=== PATIENT | female | born 1995 | race Caucasian/White ===

== ENCOUNTER 2017-06-08 22:02 | Emergency (ER) | payer OTHER ==
--- NOTE | 2017-06-08 23:48 | ED ORDER SUMMARY ---
..... Patient: INDIO MENJIVAR OrderSheet [facility] VisitID: [id number] [place] [address] 21y, F Registration Date/Time: 06/08/2017 ORDER SHEET Weight: 137.4 kg (measured) Allergies: No Known Drug Allergy GENERAL ORDERS: CBC w Diff Urgent (22:06/08/2017 Missy MURRELL) (Ack 22:12 Holly) (22:15 JSanders R.N.) CMP Urgent (22:06/08/2017 Missy MURRELL) (Ack 22:12 Holly) (22:15 GRACIELAanders R.N.) UA-Culture if indicated Urgent (22:06/08/2017 Missy MURRELL) (Ack 22:12 Holly) (22:29 JSanders R.N.) Amylase Urgent (22:06/08/2017 Missy MURRELL) (Ack 22:12 Holly) (22:15 JSanders R.N.) Lipase Urgent (22:06/08/2017 Missy MURRELL) (Ack 22:12 Holly) (22:15 GRACIELAanders R.N.) Urine Urgent (22:06/08/2017 Missy MURRELL) (Ack 22:12 Holly) (22:29 JSanders R.N.) MEDICATION ORDERS: Tylenol PO 1,000 mg (NOW) (00:18 06/09/2017 Missy MURRELL) (Ack 0:20 JSanders R.N.) (0:21 SHAHABollier R.N.) IV FLUIDS: IV NS : initial bolus 1000 mL (1000 mL/hr), then 150 mL/hr for 4h (NOW); Urgent (22:10 06/08/2017 Missy MURRELL) (Ack 22:15 JSanders R.N.) (22:29 JSanders R.N.) Zofran IV 4 mg (NOW) (22:11 06/08/2017 Missy MURRELL) (Ack 22:15 JSanders R.N.) (22:29 GRACIELAanders R.N.) ORDER SHEET NOTES: [Electronically signed by Irish Donahue R.N. (00:06/09/2017)] [Electronically signed by Sha Ceballos MD (02:06/09/2017)] [Electronically locked/signed by Irish Donahue R.N. (00:06/09/2017)]
--- NOTE | 2017-06-08 23:48 | ED ORDER SUMMARY ---
..... Patient: INDIO MENJIVAR OrderSheet [facility] VisitID: [id number] [place] [address] 21y, F Registration Date/Time: 06/08/2017 ORDER SHEET Weight: 137.4 kg (measured) Allergies: No Known Drug Allergy GENERAL ORDERS: CBC w Diff Urgent (22:06/08/2017 Missy MURRELL) (Ack 22:12 Holly) (22:15 JSanders R.N.) CMP Urgent (22:06/08/2017 Missy MURRELL) (Ack 22:12 Holly) (22:15 GRACIELAanders R.N.) UA-Culture if indicated Urgent (22:06/08/2017 Missy MURRELL) (Ack 22:12 Holly) (22:29 JSanders R.N.) Amylase Urgent (22:06/08/2017 Missy MURRELL) (Ack 22:12 Holly) (22:15 JSanders R.N.) Lipase Urgent (22:06/08/2017 Missy MURRELL) (Ack 22:12 Holly) (22:15 GRACIELAanders R.N.) Urine Urgent (22:06/08/2017 Missy MURRELL) (Ack 22:12 Holly) (22:29 JSanders R.N.) MEDICATION ORDERS: Tylenol PO 1,000 mg (NOW) (00:18 06/09/2017 Missy MURRELL) (Ack 0:20 JSanders R.N.) (0:21 SHAHABollier R.N.) IV FLUIDS: IV NS : initial bolus 1000 mL (1000 mL/hr), then 150 mL/hr for 4h (NOW); Urgent (22:10 06/08/2017 Missy MURRELL) (Ack 22:15 JSanders R.N.) (22:29 JSanders R.N.) Zofran IV 4 mg (NOW) (22:11 06/08/2017 Missy MURRELL) (Ack 22:15 JSanders R.N.) (22:29 GRACIELAanders R.N.) ORDER SHEET NOTES: [Electronically signed by Irish Donahue R.N. (00:06/09/2017)] [Electronically signed by Sha Ceballos MD (02:06/09/2017)] [Electronically locked/signed by Irish Donahue R.N. (00:06/09/2017)]
--- NOTE | 2017-06-08 23:48 | ED CLINICAL REPORT ---
Clinical Report - Physicians/Mid Levels [facility] [address] [place] [address] 06/08/2017 22:03 Patient: INDIO MENJIVAR Time Seen: 22:10. Arrived- By private vehicle. Historian- patient. HISTORY OF PRESENT ILLNESS Chief Complaint: VOMITING. This started several days ago and is still present. It was gradual in onset and has been waxing/waning. Recent travel- [place] ([place] May 10, 2017). She has had moderate nausea. She has had vomiting. The vomiting has occurred several times. No blood-tinged emesis or frankly bloody emesis. She has had loose stools. This has occurred several times. No bloody diarrhea. No black stools, bloody stools, abdominal pain or known contact with a sick individual. Has not recently been camping or on antibiotics. Possible bad food exposure at restaurant (she was visiting with her uncle and ate "junk food."). The illness is described as moderate. REVIEW OF SYSTEMS The patient has had moderate urinary frequency (several days ago - gone now). She has had back pain (yesterday - gone now). All systems otherwise negative, except as recorded above. SOCIAL HISTORY Never smoker. No alcohol use or drug use. She lives with parent(s). Has good social support. ADDITIONAL NOTES The nursing notes have been reviewed. PHYSICAL EXAM Vital Signs: 06/08/2017 22:07 BP: 139/75. HR: 115. RR: 18. O2 saturation: 99%. Temp: 99 F. Pain level now: 10/10. Have been reviewed. Appearance: Alert. Eyes: Pupils equal, round and reactive to light. ENT: Pharynx normal. Neck: Normal inspection. Neck supple. CVS: Normal heart rate and rhythm. Heart sounds normal. Abdomen: Soft and nontender. Bowel sounds normal. No organomegaly. No mass. Obese. Back: Normal inspection. Skin: Skin warm and dry. Normal skin color. Normal skin turgor. Extremities: Extremities exhibit normal ROM. No calf tenderness. No lower extremity edema. LABS, X-RAYS, AND EKG Laboratory Tests: UA-Culture if indicated: (RITO: 06/08/2017 22:30) ( [facility] 06/08/2017 22:53) Final results Test Result Flag Units (Reference) URINE COLOR YELLOW URINE APPEARANCE CLEAR URINE GLUCOSE NEGATIVE (NEGATIVE) URINE BILIRUBIN NEGATIVE (NEGATIVE) URINE KETONE NEGATIVE (NEGATIVE) URINE SPECIFIC GRAVITY 1.010 (1.010-1.030) URINE PH 6.5 (5.0-8.0) URINE PROTEIN NEGATIVE (NEGATIVE) URINE UROBILINOGEN 0.2 EU/dL (0.2-1.0) URINE NITRITE NEGATIVE (NEGATIVE) URINE BLOOD NEGATIVE (NEGATIVE) URINE LEUK ESTERASE NEGATIVE (NEGATIVE) URINE RBC 0-1 rbc/hpf (0-1) URINE WBC 0-1 wbc/hpf (0-1) URINE EPITHELIAL CELLS 1-3 EPI/hpf (0-5) URINE BACTERIA TRACE (<1+) (NONE SEEN) URINE COMMENT CULT NOT INDICATED URINE CULTURES ARE SET-UP BASED ON THE FOLLOWING CRITERIA:POSITIVE NITRITEPOSITIVE LEUKOCYTE ESTERASEGREATER THAN 10 WHITE BLOOD CELLSMODERATE (2+) OR GREATER BACTERIA Urine: (RITO: 06/08/2017 22:30) ( [facility] 06/08/2017 22:39) Final results Test Result Flag Units (Reference) URINE NEGATIVE CBC w Diff: (RITO: 06/08/2017 22:15) ( [facility] 06/08/2017 22:38) Final results Test Result Flag Units (Reference) WHITE BLOOD COUNT 8.5 K/uL (4.5-11.5) RED BLOOD COUNT 4.54 M/uL (4.00-5.20) HEMOGLOBIN 12.5 gm/dL (12.0-16.0) HEMATOCRIT 37.5 % (36.0-46.0) MEAN CELL VOLUME 83 fL (80-100) MEAN CORPUSCULAR HGB 28 pg (26-34) MEAN CORPUSCULAR HGB CONC 33 g/dL (31-37) RED CELL DISTRIBUTION WIDTH 14.1 % (11.6-14.8) PLATELET COUNT 303 K/uL (150-400) NEUTROPHIL % 65.3 % (50-75) LYMPH % 24.3 L % (25-40) MONO % 9.5 % (3-14) EOSINOPHIL % 0.5 % (0-4) BASOPHIL % 0.4 % (0-2) CMP: (RITO: 06/08/2017 22:15) ( MsgRcvd 06/08/2017 22:53) Final results Test Result Flag Units (Reference) GLUCOSE 99 mg/dL (70-110) BUN 11 mg/dL (7-18) CREATININE 1.1 mg/dL (0.6-1.3) Estimated GFR >60 mL/min Estimated GFR- >60 mL/min Note: Persistent reduction over 3 months in eGFR<60 mL/min/1.73 m2 defines CKD. Patients with eGFR values>=60 mL/min/1.73 m2 may also have CKD if evidence ofpersistent proteinuria. Additional information may be foundat www.kidney.org. SODIUM 132 L mmol/L (136-145) POTASSIUM 4.0 mmol/L (3.5-5.1) CHLORIDE 98 mmol/L (98-107) CARBON DIOXIDE 29 mmol/L (21-32) CALCIUM 8.4 L mg/dL (8.5-10.1) TOTAL PROTEIN 8.3 H g/dL (6.4-8.2) ALBUMIN 3.3 g/dL (3.3-5.0) BILIRUBIN, TOTAL 0.5 mg/dL (0.0-1.0) ALKALINE PHOSPHATASE 112 U/L (46-116) AST (SGOT) 31 U/L (15-37) ALT (SGPT) 56 U/L (12-78) LIPASE 153 U/L (73-393) AMYLASE 52 U/L (25-115) . CLINICAL IMPRESSION Vomiting. Diarrhea INSTRUCTIONS Rest. Drink plenty of fluids. Warnings: Further evaluation is necessary. GENERAL WARNINGS: Return or contact your physician immediately if your condition worsens or changes unexpectedly, if not improving as expected, or if other problems arise. Prescription Medications: Zofran 4 mg: Take 1 orally every six hours as needed for nausea/vomiting. Dispense ten (10). No refills. Substitution is permissible. Follow-up: Follow up with your doctor tomorrow. Call for an appointment. Understanding of the discharge instructions verbalized by patient and parent. (Electronically signed by Sha Ceballos MD 06/09/2017 2:26)
--- NOTE | 2017-06-08 23:48 | ED NURSING NOTES ---
Clinical Report - Nurses [facility] [address] [place] [address] 06/08/2017 22:03 Patient: INDIO MENJIVAR TRIAGE Triage time 22:Jun 08 2017. Acuity: LEVEL 3. Chief Complaint: NAUSEA, VOMITING and DIARRHEA and (fever at night, NVD during day). 22:14 06/08/17. SEPSIS SCREEN: Sepsis Screen. Negative (no infection suspected/documented). IVELISSE COMA SCORE: Ivelisse Coma Scale: 15- eyes open spontaneously (4); best verbal response- oriented x 4 (5); best motor response- obeys commands (6). --22:14 Erum Corrales R.N. 22:07 06/08/17. BP: 139/75 (regular adult cuff) taken on the left arm, while sitting. HR: 115. RR: 18. O2 saturation: 99% on room air. Temp: 99 F (oral). Pain level now: 1010. Additional comments: GOLD. --22:14 Erum Corrales R.N. Height/Length: 63 inches. --22:14 Erum Corrales R.N.. Weight: 137.4 kg measured. BMI: 53.7. --22:20 Erum Corrales R.N. Medications Latuda Oral (Tablet 80 mg), daily . Omeprazole Oral 40 mg, daily. OXcarbazepine Oral 600 mg, 2x a day. TraZODone HCl Oral (Tablet 100 mg) 1 tablet, at bedtime. --22:10 Erum Corrales R.N. Allergies No Known Drug Allergy. --22:10 Erum Corrales R.N. History Arrived by private vehicle. Historian: patient. Accompanied by family. This started yesterday. She has had nausea, moderate vomiting. The vomiting has occurred several times and diarrhea. Treatment [employer]: None. PAST MEDICAL HX: Last normal menstrual period was 4 weeks ago- weeks ago. SOCIAL HX: Never smoker. No alcohol use or drug use. Recent travel- ([place] May 10, 2017). No infectious disease exposure. No known contact with a sick individual. ABUSE ASSESSMENT: No report of abuse. SELF HARM ASSESSMENT: A self harm assessment was performed. The patient answered "no" to the question "Do you have thoughts of harming or killing yourself?" and "Have you recently had thoughts about harming or killing others?". --22:14 Erum Corrales R.N. PROBLEMS: Schizophrenia. Anxiety Reaction. Psychosis. Mental Illness. Cough. Contusion. Bipolar Disorder. Gastroesophageal Reflux. Diarrhea. --22:10 Erum Corrales R.N. ADDITIONAL SURGERIES: no known surgeries. Interventions ID band on patient. To treatment room. --22:14 Erum Corrales R.N. PHYSICAL ASSESSMENT 22:06/08/17. Ambulatory to room. Patient gowned. GENERAL / NEURO / PSYCH: Alert. Oriented X 4. Appears in no acute distress. Appears anxious. HEENT: Mucous membranes are pink. RESPIRATORY: Respirations not labored. Breath sounds within normal limits. CVS: Normal sinus rhythm noted. Capillary refill less than 2 seconds. GI / : The patient has had nausea and diarrhea. Abdomen soft and nontender. Bowel sounds within normal limits. Normal genitalia. Stool color normal. SKIN: Skin is warm and dry. --22:14 Erum Corrales R.N. NURSING PROGRESS NOTES 22:06/08/2017 Site #1 started via IV in the right antecubital space with an 20g angiocath, with aseptic technique and good blood return; one attempt. Blood drawn: rainbow set. Labeled in the presence of the patient and sent to the lab. Saline lock flushed with 10 mL saline. --22:15 Erum Corrales R.N. 22:06/08/17. The plan of care for this patient has been created. Monitoring of patient in place. Patient gowned. Head of bed elevated. Reassurance given. Two patient identifiers checked. Call light placed in reach. Side rails up x 1. Bed placed in lowest position. Brakes of bed on. Patient ready for evaluation- chart flagged and ED physician notified. --22:15 Erum Corrales R.N. 22:23 06/08/2017 Started bag #1 1000 mL IV Fluids IV NS (Saline); bolus of 1000 mL over 1 hour(s) then at 1000 mL/hr over 1 hour(s) via site #1 via IV pump. Allergies verified and confirmed 5 rights. IV patency established. IV site checked: no pain, redness, or swelling. IV flushed thoroughly pre- and post-medication administration. --22:29 Erum Corrales R.N. 22:23 06/08/17. ( Patient up to use restroom, reports feeling a little dizzy). --22:23 Erum Corrales R.N. 22:29 06/08/2017 Zofran (Ondansetron HCl) IVP 4 mg given over 1 minute(s) via site #1. Allergies verified and confirmed 5 rights. IV patency established. IV site checked: no pain, redness, or swelling. IV flushed thoroughly pre- and post-medication administration. IVP given by RN. --22:29 Erum Corrales R.N. 22:30 06/08/17. BP: 123/55 (large adult cuff) taken on the left arm, while sitting. HR: 100. RR: 20. O2 saturation: 98% on room air. Pain level now: 1010. Additional comments: GOLD. --23:18 Erum Corrales R.N. 23:00 06/08/17. BP: 128/66 (large adult cuff) taken on the left arm. HR: 95. RR: 18. O2 saturation: 100% on room air. Pain level now: 10/10. --23:19 Erum Corrales R.N. 23:20 06/08/17. ( Patient sleeping, easily aroused, OGLD reported as 10/10, doctor already informed by patient, she is on different medications so it needs to be carefully checked for interactions if anything is given for pain.). --23:20 Erum Corrales R.N. 23:24 06/08/17. ( Mother at bedside). --23:24 Erum Corrales R.N. 23:33 06/08/2017 IV Fluids IV NS Bag Change: bag #1 completed. Total amount infused: 1000. STARTED bag #2 at 150 mL/hr via IV pump. Confirmed 5 rights. IV patency established. IV site checked: no pain, redness, or swelling. IV flushed thoroughly. --23:33 Erum Corrales R.N. 00:10 06/09/2017 Site #1 removed upon discharge. Catheter intact. Manual pressure applied. --00:22 Irish Donahue R.N. 00:10 06/09/2017 IV Fluids IV NS Discontinued: bag #2 STOPPED. Total amount infused: 90 mL. IV patency established. IV site checked: no pain, redness, or swelling. IV flushed thoroughly. --00:22 Irish Donahue R.N. 00:20 06/09/2017 Tylenol (Acetaminophen) PO Tablets 1000 mg given. Allergies verified and confirmed 5 rights. --00:21 Irish Donahue R.N. DISPOSITION / DISCHARGE Condition at departure: improved and stable. No learning barriers present. Discharge instructions provided and reviewed with the patient and family. Reviewed medication(s) side effects, precautions, dosing and course information. Prescription(s) given to the patient. Patient verbalized understanding. Written instructions provided in Maori. The patient was discharged home and accompanied by family. She left the Emergency Department ambulatory and via private vehicle. Family member driving. --00:24 Irish Donahue R.N. 00:12 06/09/17. BP: 140/84. HR: 96. RR: 15. O2 saturation: 98% on room air. Temp: deferred. Clarke-Munoz pain scale: 4/10. --00:24 Irish Donahue R.N. Departure time: 00:24. --00:24 Irish Donahue R.N. Locked/Released at 06/09/2017 0:24 by Irish Donahue R.N.
--- NOTE | 2017-06-08 23:48 | ED CLINICAL REPORT ---
Clinical Report - Physicians/Mid Levels [facility] [address] [place] [address] 06/08/2017 22:03 Patient: INDIO MENJIVAR Time Seen: 22:10. Arrived- By private vehicle. Historian- patient. HISTORY OF PRESENT ILLNESS Chief Complaint: VOMITING. This started several days ago and is still present. It was gradual in onset and has been waxing/waning. Recent travel- [place] ([place] May 10, 2017). She has had moderate nausea. She has had vomiting. The vomiting has occurred several times. No blood-tinged emesis or frankly bloody emesis. She has had loose stools. This has occurred several times. No bloody diarrhea. No black stools, bloody stools, abdominal pain or known contact with a sick individual. Has not recently been camping or on antibiotics. Possible bad food exposure at restaurant (she was visiting with her uncle and ate "junk food."). The illness is described as moderate. REVIEW OF SYSTEMS The patient has had moderate urinary frequency (several days ago - gone now). She has had back pain (yesterday - gone now). All systems otherwise negative, except as recorded above. SOCIAL HISTORY Never smoker. No alcohol use or drug use. She lives with parent(s). Has good social support. ADDITIONAL NOTES The nursing notes have been reviewed. PHYSICAL EXAM Vital Signs: 06/08/2017 22:07 BP: 139/75. HR: 115. RR: 18. O2 saturation: 99%. Temp: 99 F. Pain level now: 10/10. Have been reviewed. Appearance: Alert. Eyes: Pupils equal, round and reactive to light. ENT: Pharynx normal. Neck: Normal inspection. Neck supple. CVS: Normal heart rate and rhythm. Heart sounds normal. Abdomen: Soft and nontender. Bowel sounds normal. No organomegaly. No mass. Obese. Back: Normal inspection. Skin: Skin warm and dry. Normal skin color. Normal skin turgor. Extremities: Extremities exhibit normal ROM. No calf tenderness. No lower extremity edema. LABS, X-RAYS, AND EKG Laboratory Tests: UA-Culture if indicated: (RITO: 06/08/2017 22:30) ( [facility] 06/08/2017 22:53) Final results Test Result Flag Units (Reference) URINE COLOR YELLOW URINE APPEARANCE CLEAR URINE GLUCOSE NEGATIVE (NEGATIVE) URINE BILIRUBIN NEGATIVE (NEGATIVE) URINE KETONE NEGATIVE (NEGATIVE) URINE SPECIFIC GRAVITY 1.010 (1.010-1.030) URINE PH 6.5 (5.0-8.0) URINE PROTEIN NEGATIVE (NEGATIVE) URINE UROBILINOGEN 0.2 EU/dL (0.2-1.0) URINE NITRITE NEGATIVE (NEGATIVE) URINE BLOOD NEGATIVE (NEGATIVE) URINE LEUK ESTERASE NEGATIVE (NEGATIVE) URINE RBC 0-1 rbc/hpf (0-1) URINE WBC 0-1 wbc/hpf (0-1) URINE EPITHELIAL CELLS 1-3 EPI/hpf (0-5) URINE BACTERIA TRACE (<1+) (NONE SEEN) URINE COMMENT CULT NOT INDICATED URINE CULTURES ARE SET-UP BASED ON THE FOLLOWING CRITERIA:POSITIVE NITRITEPOSITIVE LEUKOCYTE ESTERASEGREATER THAN 10 WHITE BLOOD CELLSMODERATE (2+) OR GREATER BACTERIA Urine: (RITO: 06/08/2017 22:30) ( [facility] 06/08/2017 22:39) Final results Test Result Flag Units (Reference) URINE NEGATIVE CBC w Diff: (RITO: 06/08/2017 22:15) ( [facility] 06/08/2017 22:38) Final results Test Result Flag Units (Reference) WHITE BLOOD COUNT 8.5 K/uL (4.5-11.5) RED BLOOD COUNT 4.54 M/uL (4.00-5.20) HEMOGLOBIN 12.5 gm/dL (12.0-16.0) HEMATOCRIT 37.5 % (36.0-46.0) MEAN CELL VOLUME 83 fL (80-100) MEAN CORPUSCULAR HGB 28 pg (26-34) MEAN CORPUSCULAR HGB CONC 33 g/dL (31-37) RED CELL DISTRIBUTION WIDTH 14.1 % (11.6-14.8) PLATELET COUNT 303 K/uL (150-400) NEUTROPHIL % 65.3 % (50-75) LYMPH % 24.3 L % (25-40) MONO % 9.5 % (3-14) EOSINOPHIL % 0.5 % (0-4) BASOPHIL % 0.4 % (0-2) CMP: (RITO: 06/08/2017 22:15) ( MsgRcvd 06/08/2017 22:53) Final results Test Result Flag Units (Reference) GLUCOSE 99 mg/dL (70-110) BUN 11 mg/dL (7-18) CREATININE 1.1 mg/dL (0.6-1.3) Estimated GFR >60 mL/min Estimated GFR- >60 mL/min Note: Persistent reduction over 3 months in eGFR<60 mL/min/1.73 m2 defines CKD. Patients with eGFR values>=60 mL/min/1.73 m2 may also have CKD if evidence ofpersistent proteinuria. Additional information may be foundat www.kidney.org. SODIUM 132 L mmol/L (136-145) POTASSIUM 4.0 mmol/L (3.5-5.1) CHLORIDE 98 mmol/L (98-107) CARBON DIOXIDE 29 mmol/L (21-32) CALCIUM 8.4 L mg/dL (8.5-10.1) TOTAL PROTEIN 8.3 H g/dL (6.4-8.2) ALBUMIN 3.3 g/dL (3.3-5.0) BILIRUBIN, TOTAL 0.5 mg/dL (0.0-1.0) ALKALINE PHOSPHATASE 112 U/L (46-116) AST (SGOT) 31 U/L (15-37) ALT (SGPT) 56 U/L (12-78) LIPASE 153 U/L (73-393) AMYLASE 52 U/L (25-115) . CLINICAL IMPRESSION Vomiting. Diarrhea INSTRUCTIONS Rest. Drink plenty of fluids. Warnings: Further evaluation is necessary. GENERAL WARNINGS: Return or contact your physician immediately if your condition worsens or changes unexpectedly, if not improving as expected, or if other problems arise. Prescription Medications: Zofran 4 mg: Take 1 orally every six hours as needed for nausea/vomiting. Dispense ten (10). No refills. Substitution is permissible. Follow-up: Follow up with your doctor tomorrow. Call for an appointment. Understanding of the discharge instructions verbalized by patient and parent. (Electronically signed by Sha Ceballos MD 06/09/2017 2:26)
--- NOTE | 2017-06-09 02:26 | ED MAR SUMMARY ---
..... Medication Administration Record [facility] [address] [place] [address] Patient: INDIO MENJIVAR Visit ID: [id number] 21y, F Weight: 137.4 kg Height/Length: 63 in BMI: 53.7 ALLERGIES: No Known Drug Allergy Start 22:23 06/08/2017 Erum Corrales R.N., Stop 00:10 06/09/2017 Irish Donahue R.N. Medication Administered: IV NS (SALINE), Dose: IV Fluids over 1 hour(s), Rate: 1000 mL/hr, Bolus: 1000 mL over 1 hour(s), Dispensed: 1000 mL bag, Site: #1 right AC. Medication Ordered: IV NS : initial bolus 1000 mL (1000 mL/hr), then 150 mL/hr for 4h (NOW); Urgent. Given 22:29 06/08/2017 Erum Corrales R.N. Medication Administered: ZOFRAN [IVP] (ONDANSETRON HCL), Dose: 4 mg IVP over 1 minute(s), Site: #1 right AC. Medication Ordered: Zofran IV 4 mg (NOW). Given 00:20 06/09/2017 Irish Donahue R.N. Medication Administered: TYLENOL [PO] (ACETAMINOPHEN), Dose: 1000 mg Tablets PO. Medication Ordered: Tylenol PO 1,000 mg (NOW).
--- NOTE | 2017-06-09 02:26 | ED MAR SUMMARY ---
..... Medication Administration Record [facility] [address] [place] [address] Patient: INDIO MENJIVAR Visit ID: [id number] 21y, F Weight: 137.4 kg Height/Length: 63 in BMI: 53.7 ALLERGIES: No Known Drug Allergy Start 22:23 06/08/2017 Erum Corrales R.N., Stop 00:10 06/09/2017 Irish Donahue R.N. Medication Administered: IV NS (SALINE), Dose: IV Fluids over 1 hour(s), Rate: 1000 mL/hr, Bolus: 1000 mL over 1 hour(s), Dispensed: 1000 mL bag, Site: #1 right AC. Medication Ordered: IV NS : initial bolus 1000 mL (1000 mL/hr), then 150 mL/hr for 4h (NOW); Urgent. Given 22:29 06/08/2017 Erum Corrales R.N. Medication Administered: ZOFRAN [IVP] (ONDANSETRON HCL), Dose: 4 mg IVP over 1 minute(s), Site: #1 right AC. Medication Ordered: Zofran IV 4 mg (NOW). Given 00:20 06/09/2017 Irish Donahue R.N. Medication Administered: TYLENOL [PO] (ACETAMINOPHEN), Dose: 1000 mg Tablets PO. Medication Ordered: Tylenol PO 1,000 mg (NOW).
--- NOTE | 2017-06-09 02:26 | ED MED RECONCILIATION SUMMARY ---
Patient: INDIO MENJIVAR Medication Reconciliation Report [facility] VisitID: [id number] [place] [address] 21y, F Registration Date/Time: 06/08/2017 Weight: 137.4 kg Height/Length: 63 in. BMI: 53.7 ALLERGIES: No Known Drug Allergy The patient's Home Medications are listed below: THE FOLLOWING MEDICATIONS NEED TO BE RECONCILED: Latuda Oral (80 mg), daily Omeprazole Oral 40 mg, daily OXcarbazepine Oral 600 mg, 2x a day TraZODone HCl Oral (100 mg) 1 tablet, at bedtime The source(s) of the original Home Medication information: Not obtained. The following Medications were given to the patient in the Emergency Department: IV NS IV Fluids bolus 1000 mL over 1 hour(s), then 1000 mL/hr, administered: 06/08/2017 10:23:00 PM Zofran [IVP] IVP 4 mg, administered: 06/08/2017 10:29:00 PM Tylenol [PO] PO 1000 mg, administered: 06/09/2017 12:20:00 AM The following Medications were prescribed to the patient: Zofran 4 mg: Take 1 orally every six hours as needed for nausea/vomiting. Dispense ten (10). No refills. Substitution is permissible. -- Sha Ceballos MD
--- NOTE | 2017-06-09 02:26 | ED MED RECONCILIATION SUMMARY ---
Patient: INDIO MENJIVAR Medication Reconciliation Report [facility] VisitID: [id number] [place] [address] 21y, F Registration Date/Time: 06/08/2017 Weight: 137.4 kg Height/Length: 63 in. BMI: 53.7 ALLERGIES: No Known Drug Allergy The patient's Home Medications are listed below: THE FOLLOWING MEDICATIONS NEED TO BE RECONCILED: Latuda Oral (80 mg), daily Omeprazole Oral 40 mg, daily OXcarbazepine Oral 600 mg, 2x a day TraZODone HCl Oral (100 mg) 1 tablet, at bedtime The source(s) of the original Home Medication information: Not obtained. The following Medications were given to the patient in the Emergency Department: IV NS IV Fluids bolus 1000 mL over 1 hour(s), then 1000 mL/hr, administered: 06/08/2017 10:23:00 PM Zofran [IVP] IVP 4 mg, administered: 06/08/2017 10:29:00 PM Tylenol [PO] PO 1000 mg, administered: 06/09/2017 12:20:00 AM The following Medications were prescribed to the patient: Zofran 4 mg: Take 1 orally every six hours as needed for nausea/vomiting. Dispense ten (10). No refills. Substitution is permissible. -- Sha Ceballos MD
--- NOTE | 2017-06-09 02:26 | ED DISCHARGE INSTRUCTIONS ---
Patient: INDIO MENJIVAR General Instructions [facility] VisitID: [id number] [place] [address] 21y, F Registration Date/Time: 06/08/2017 Vomiting. Diarrhea INSTRUCTIONS Rest. Drink plenty of fluids. Warnings: Further evaluation is necessary. GENERAL WARNINGS: Return or contact your physician immediately if your condition worsens or changes unexpectedly, if not improving as expected, or if other problems arise. Prescription Medications: Zofran 4 mg: Take 1 orally every six hours as needed for nausea/vomiting. Dispense ten (10). No refills. Substitution is permissible. Follow-up: Follow up with your doctor tomorrow. Call for an appointment. Understanding of the discharge instructions verbalized by patient and parent. ADDITIONAL INFORMATION Vomiting [6Yr-Adult] Vomiting is a common symptom that may be due to different causes. These include gastroenteritis ("stomach flu"), food poisoning and gastritis. There are other more serious causes of vomiting which may be hard to diagnose early in the illness. Therefore, it is important to watch for the warning signs listed below. The main danger from repeated vomiting is dehydration. This is due to excess loss of water and minerals from the body. When this occurs, body fluids must be replaced. Home Care: If symptoms are severe, rest at home for the next 24 hours. You may use acetaminophen (Tylenol) or ibuprofen (Motrin, Advil) to control fever, unless another medicine was prescribed. [NOTE : If you have chronic liver or kidney disease or ever had a stomach ulcer or GI bleeding, talk with your doctor before using these medicines.] (Aspirin should never be used in anyone under 18 years of age who is ill with a fever. It may cause severe liver damage.) Avoid tobacco and alcohol use, which may worsen your symptoms. If medicines for vomiting were prescribed, take as directed. Once vomiting stops, then follow these guidelines: During The First 12-24 Hours follow the diet below: FRUIT JUICES: Apple, grape juice, clear fruit drinks, and electrolyte replacement drinks. BEVERAGES: Soft drinks without caffeine; mineral water (plain or flavored), decaffeinated tea and coffee. SOUPS: Clear broth, consomm and bouillon DESSERTS: Plain gelatin, popsicles and fruit juice bars. As you feel better, you may add 6-8 ounces of yogurt per day. During The Next 24 Hours you may add the following to the above: Hot cereal, plain toast, bread, rolls, crackers Plain noodles, rice, mashed potatoes, chicken noodle or rice soup Unsweetened canned fruit (avoid pineapple), bananas Limit caffeine and chocolate. No spices or seasonings except salt. During The Next 24 Hours Gradually resume a normal diet, as you feel better and your symptoms lessen. Follow Up with your doctor as advised if you are not improving over the next 2-3 days. Get Prompt Medical Attention if any of the following occur: Constant right-sided lower abdominal pain or increasing general abdominal pain Continued vomiting (unable to keep liquids down) for 24 hours Frequent diarrhea (more than 5 times a day); blood (red or black color) or mucus in diarrhea Reduced urine output or extreme thirst Weakness, dizziness or fainting Unusually drowsy or confused Fever of 100.4F (38C) oral or higher, not better with fever medication Yellow color of the eyes or skin Viral Gastroenteritis (6Yr-Adult) Gastroenteritis is another name for thestomach flu.It is most often caused by a virus that affects the stomach and intestinal tract. Symptoms include stomach cramping and fever, vomiting and/or diarrhea, and can last from 2 to 7 days. The danger from repeated vomiting or diarrhea is dehydration. This is the loss of too much water and minerals from the body. When this occurs, body fluids must be replaced. Antibiotics are not effective for this illness, but simple home treatment will be helpful. Home Care If symptoms are severe, rest at home for the next 24 hours. Avoid tobacco, caffeine, and alcohol use, which can worsen symptoms. Acetaminophen (Tylenol) or ibuprofen (Motrin, Advil) may be usedfor fever or pain unless another medication was prescribed. NOTE: If you have chronic liver or kidney disease or ever had a stomach ulcer or GI bleeding, talk with your doctor before using these medicines. Aspirin should never be used in anyone under 18 years of age who is ill with a fever. It may cause severe liver damage. If medicines for diarrhea or vomiting were prescribed, be sure they are takenonly as directed. If vomiting, drink small amounts of clear fluids (such as water, sports drinks, clear sodas) at frequent intervals to prevent dehydration. Start with 1 to 2 tablespoons every 10 minutes. Once vomiting stops, follow these guidelines: During The First 12 To 24 Hours follow the diet below: Beverages: Sport drinks like Gatorade, soft drinks without caffeine; theresa [place], mineral water (plain or flavored), decaffeinated tea and coffee. Soups: Clear broth, consomm and bouillon Desserts: Plain gelatin (Jell-O), Popsicles and fruit juice bars. During The Next 24 Hours you may add the following to the above: Hot cereal, plain toast, bread, rolls, crackers Plain noodles, rice, mashed potatoes, chicken noodle or rice soup Unsweetened canned fruit (avoid pineapple), bananas Limit fat intake to less than 15 grams per day by avoiding margarine, butter, oils, mayonnaise, sauces, gravies, fried foods, peanut butter, meat, poultry, and fish. Limit fiber; avoid raw or cooked vegetables, fresh fruits (except bananas), and bran cereals. Limit caffeine and chocolate. Do not use spices or seasonings except salt. During The Next 24 Hours The patient can gradually resume a normal diet as symptoms lessen. Preventing Spread Hand washing with soap and water is the best way to prevent the spread of viruses. Caregivers should wash their hands before andafter touching the sick person. The sick person, as well as everyone in the family,should wash their hands after using the toilet and before meals. Clean the toilet after each use. People with diarrhea should not prepare food for others. If you are preparing your own foods, wash your hands before and after. Follow Up with your doctor as advised. Call your doctor if you are not improving over the next 2 to 3 days. If a stool (diarrhea) sample was taken, you may call in 2 days (or as directed) for the results. Get Prompt Medical Attention if any of the following occur: Increasing abdominal pain Continued vomiting (unable to keep liquids down) Frequent diarrhea (more than 5 times a day) Blood in vomit or stool (black or red color) Dark urine, reduced urine output, or extreme thirst Weakness, dizziness, fainting Drowsiness, confusion, stiff neck, or seizure Fever of 100.4F (38C) oral or higher, not better with fever medication New rash Ondansetron Oral disintegrating tablet What is this medicine? ONDANSETRON (on GABE se isidro) is used to treat nausea and vomiting caused by chemotherapy. It is also used to prevent or treat nausea and vomiting after surgery. How should I use this medicine? These tablets are made to dissolve in the mouth. Do not try to push the tablet through the foil backing. With dry hands, peel away the foil backing and gently remove the tablet. Place the tablet in the mouth and allow it to dissolve, then swallow. While you may take these tablets with water, it is not necessary to do so. Talk to your parts sales associate regarding the use of this medicine in children. Special care may be needed. What side effects may I notice from receiving this medicine? Side effects that you should report to your doctor or health healthcare or medical as soon as possible: allergic reactions like skin rash, itching or hives, swelling of the face, lips, or tongue breathing problems dizziness fast or irregular heartbeat feeling faint or lightheaded, falls fever and chills swelling of the hands and feet tightness in the chest Side effects that usually do not require medical attention (report to your doctor or health healthcare or medical if they continue or are bothersome): constipation or diarrhea headache What may interact with this medicine? Do not take this medicine with any of the following medications: -apomorphine -cisapride -dofetilide -dronedarone -pimozide -thioridazine -ziprasidone This medicine may also interact with the following medications: -carbamazepine -phenytoin -rifampicin -tramadol -other medicines that prolong the QT interval (cause an abnormal heart rhythm) What if I miss a dose? If you miss a dose, take it as soon as you can. If it is almost time for your next dose, take only that dose. Do not take double or extra doses. Where should I keep my medicine? Keep out of the reach of children. Store between 2 and 30 degrees C (36 and 86 degrees F). Throw away any unused medicine after the expiration date. What should I tell my health care provider before I take this medicine? They need to know if you have any of these conditions: heart disease history of irregular heartbeat liver disease low levels of magnesium or potassium in the blood an unusual or allergic reaction to ondansetron, granisetron, other medicines, foods, dyes, or preservatives or trying to get breast-feeding What should I watch for while using this medicine? Check with your doctor or health healthcare or medical as soon as you can if you have any sign of an allergic reaction. You have been given the following additional information: Vomiting (6Y-Adult) Gastroenteritis, Viral (6Y-Adult) Ondansetron Oral disintegrating tablet Rest. (Electronically signed by Sha Ceballos MD 06/09/2017 2:26)
== END 2017-06-09 00:12 | disposition home or self-care (01) ==
LOC: ED SRH 22:02
DX: R11.2 Nausea with vomiting, unspecified (principal); R19.7 Diarrhea, unspecified; K21.9 Gastro-esophageal reflux disease without esophagitis; Z79.899 Other long term (current) drug therapy; F31.9 Bipolar disorder, unspecified; F20.9 Schizophrenia, unspecified
CPT/HCPCS: 90004; 90100; 92235; 92530; 93070; 95059